=== PATIENT | male | born 1985 | race Caucasian/White ===

== ENCOUNTER 2016-10-30 09:00 | Emergency (ER) | payer BC, OTHER ==
[~2016-10-30] VITALS: Ht 175.3 cm; Wt 73.9 kg
[2016-10-30 09:15] VITALS: BP 138/84; PULSE 85; RESP 16; TEMP 98.1; O2SAT 98
--- NOTE | 2016-10-30 09:15 | NUR ---
Patient to ER bed 3 to gown for evaluation. Side rails up. Assumed care.
--- NOTE | 2016-10-30 09:17 | NUR ---
ER at bedside examining patient.
--- NOTE | 2016-10-30 09:18 | NUR ---
Pt presents to ED c/o testicular pain x 2 days. Pt reports having unprotected sex x 3 weeks ago. Pt has h/o htn controlled w/o medication. Pt denies discharge.
--- NOTE | 2016-10-30 09:20 | NUR ---
Pt ambulated to restroom for urine collected.
[2016-10-30] MEDS ORDERED: cefTRIAXone 1 GM in LIDOCAINE 1%, 20 ML MDV 2.1 ML IM ONE (09:30)
[2016-10-30] MEDS ORDERED: ONDANSETRON 4 MG ODT TAB PO ONE (09:30)
[2016-10-30] MEDS ORDERED: AZITHROMYCIN 250 MG TABLET PO ONE (09:30)
[2016-10-30] MEDS ORDERED: IBUPROFEN 600 MG TABLET PO ONE (09:30)
[2016-10-30 09:46] LABS: BILIRUBIN,URINE NEGATIVE (NEGATIVE); BLOOD, URINE NEGATIVE (NEGATIVE); CLARITY/URINE CLEAR (CLEAR); COLOR,URINE YELLOW (YELLOW); GLUCOSE,URINE NEGATIVE (NEGATIVE); KETONES,URINE NEGATIVE (NEGATIVE); LEUKOCYTE ESTERASE ,URINE NEGATIVE (NEGATIVE); NITRITE, URINE NEGATIVE (NEGATIVE); PROTEIN URINE NEGATIVE (NEGATIVE); UROBILINOGEN,URINE 0.2 (0.2-1.0)
--- NOTE | 2016-10-30 09:50 | NUR ---
Patient transported to radiology via ambulation, accompanied by US staff.
--- NOTE | 2016-10-30 10:30 | NUR ---
Pt reports pain resolving.
[2016-10-30 11:20] VITALS: BP 136/90; PULSE 72; RESP 16; TEMP 98.1; O2SAT 98
--- NOTE | 2016-10-30 11:20 | NUR ---
Patient given written and verbal discharge instructions and verbalizes understanding. ER MD discussed with patient the results and treatment provided. Given copies of tests performed in ER. Patient in stable condition. ID arm band removed. Rx of motrin,keflex given. Patient educated on pain management and to follow up with PMD. Pain Scale 2. Opportunity for questions provided and answered.
[2016-10-31 09:24] LABS: HEPATITIS B CORE AB, TOTAL Negative (Negative); HEPATITIS B SURFACE AG Negative (Negative); HEPATITIS C VIRUS AB <0.1 s/co ratio (0.0-0.9)
[2016-10-31 20:07] LABS: CHLAMYDIA TRACHOMATIS NAA Negative (Negative); NEISSERIA GONORRHOEAE NAA Negative (Negative)
== END 2016-10-30 11:20 | disposition home or self-care (01) ==
LOC: SED 09:00
DX: N50.89 Other specified disorders of the male genital organs (principal); I10 Essential (primary) hypertension
CPT/HCPCS: 36415; 76870; 81003; 86704; 86706; 86803; 87340; 87491; 87591; 96372; 99285; J0696; J2001; Q0144; Q0162

== ENCOUNTER 2019-04-02 03:15 | Emergency (ER) | payer OTHER ==
[~2019-04-02] VITALS: Ht 175.3 cm; Wt 67.1 kg
--- NOTE | 2019-04-02 03:20 | NUR ---
Patient to ER bed 8 to gown for evaluation. Side rails up.
[2019-04-02 03:25] VITALS: BP_SYST 135
--- NOTE | 2019-04-02 03:35 | NUR ---
Pt in ER w/ c/o of bleeding from tonsillectomy was performed on Mar.25. Pt states he has been coughing up blood and has throat pain 12/30. Pt was instructed by surgeon to return to ER if bleeding ws to occur after the surgery. No fever, chills, N/V/D noted. Will continue to monitor.
--- NOTE | 2019-04-02 03:50 | NUR ---
Dr. Valverde at bedside examining Pt.
[2019-04-02] MEDS ORDERED: ONDANSETRON HCL 4 MG/2 ML VIAL IVP ONE (04:00)
[2019-04-02] MEDS ORDERED: NACL 0.9% 1,000 ML IV ONE (04:00)
--- NOTE | 2019-04-02 04:20 | NUR ---
# 20 gauge angiocath placed to RAC. Use of asceptic technique. Opsite placed over site. Blood return noted. Blood for lab drawn from site. Flushed with 10 cc of normal saline. No evidence of infiltration noted. Patient tolerated well.
[2019-04-02 04:43] LABS: BASOPHILS % (AUTO) 0.5 % (0.0-2.0); EOSINOPHILS # (AUTO) 0.1 K/uL (0.0-0.4); EOSINOPHILS % (AUTO) 0.8 % (0.0-4.0); HEMATOCRIT 41.5 % (36-54); HEMOGLOBIN 14.4 g/dL (14.0-18.0); LYMPHOCYTES # (AUTO) 2.4 K/uL (1.0-5.5); LYMPHOCYTES % (AUTO) 27.1 % (20.5-51.5); MEAN CORPUSCULAR HEMOGLOBIN 31 pg (27-31); MEAN CORPUSCULAR HGB CONC 35 % (32-36); MEAN CORPUSCULAR VOLUME 88 fL (79.0-98.0); MONOCYTES # (AUTO) 0.5 K/uL (0.0-1.0); NEUTROPHILS # (AUTO) 5.8 K/uL (1.8-7.7); NEUTROPHILS % (AUTO) 65.6 % (40.0-70.0); PLATELET COUNT (AUTO) 269 K/uL (130-430); RED CELL DISTRIBUTION WIDTH 12.3 % (9.0-15.0); WHITE BLOOD COUNT (AUTO) 8.9 K/uL (4.8-10.8)
[2019-04-02 04:53] LABS: CALCIUM 8.9 mg/dL (8.4-11.0); CREATININE 0.91 mg/dL (0.55-1.30); POTASSIUM 3.8 mmol/L (3.5-5.1)
[2019-04-02] MEDS ORDERED: LIP10 PO (04:55)
[2019-04-02] MEDS ORDERED: ALPR0.5T PO (04:56)
--- NOTE | 2019-04-02 04:57 | NUR ---
Medication reconciliation completed with information provided by patient. Any prior medication reconciliation on file was reviewed and corrected.
[2019-04-02 04:58] LABS: PROTHROMBIN TIME 10.2 SECS (9.5-12.5)
[2019-04-02] MEDS ORDERED: PANTOPRAZOLE SODIUM 40 MG/VIAL (PROTONIX) IVP ONE (05:00)
[2019-04-02 05:05] LABS: ALBUMIN 3.5 g/dL (3.4-4.8); TOTAL BILIRUBIN 0.2 mg/dL (0.0-1.0)
--- NOTE | 2019-04-02 07:00 | NUR ---
Patient resting in bed with at bedside, awaiting admit orders. Patient denies nausea, denies pain at this time. Patient with vital signs WNL, no signs of distress noted.
--- NOTE | 2019-04-02 08:27 | NUR ---
DR MARTINI SPEAKING WITH DR GREENBERG.
--- NOTE | 2019-04-02 08:28 | NUR ---
ER MD Dr Li spoke with Dr Salas who is able to see patient in his clinic this morning at 9:30, patient will go staight from ER to Dr Salas's office for assessment and plan of care.
[2019-04-02 08:50] VITALS: BP_SYST 120
--- NOTE | 2019-04-02 09:00 | NUR ---
Patient given written and verbal discharge instructions and verbalizes understanding. ER MD discussed with patient the results and treatment provided. Patient in stable condition. ID arm band removed. IV catheter removed intact and dressing applied, no active bleeding. NO Rx given. Patient educated on s/s of bleeding, infection and to follow up with PMD for wound check. Pain Scale 0/10. Opportunity for questions provided and answered. Medication side effect fact sheet provided. Patient will go straight to Dr Salas's office from ER for 9:30 appointment.
== END 2019-04-02 09:00 | disposition home or self-care (01) ==
LOC: SED 03:15
DX: K91.840 Postprocedural hemorrhage of a digestive system organ or structure following a digestive system procedure (principal); I10 Essential (primary) hypertension; Z90.49 Acquired absence of other specified parts of digestive tract; Z79.899 Other long term (current) drug therapy
CPT/HCPCS: 36415; 80053; 85025; 85610; 85730; 96374; 96375; 99283; C9113; J2405; J7030